=== PATIENT | female | born 1995 | race American Indian/Alaskan Native ===

== ENCOUNTER 2016-11-18 13:34 | Emergency (ER) | payer SELFPAY ==
--- NOTE | 2016-11-18 15:11 | Emergency Department Report ---
Entered by HOLLAND OZUNA, acting as scribe for ORI CAMPOS NP. Chief Complaint: Abdominal Pain Stated Complaint: ABDOMINAL PAIN/PREG Time Seen by Provider: 11/18/16 15:05 - HPI History of Present Illness: 21 y/o female presents with abd pain that started earlier today. Sx include mild vaginal d/c but pt denies dysuria, foul smelling urine or frequency. - ROS Review of Systems: + abd pain +vag d/c -dysuria -foul smelling urine - frequency - Exam Vital Signs: Vital Signs 11/18/16 15:00 Temperature 98.7 F Pulse Rate 97 H Respiratory 18 Rate Blood Pressure 148/57 O2 Sat by Pulse 100 Oximetry Physical Exam: abd: suprapubic TTP, no rebound no guarding. MSE screening note: Focused history and physical exam performed. Due to findings the following was ordered: labs, us ED Disposition for MSE Condition: Stable Instructions: Abdominal Pain (ED) This documentation as recorded by the scribe,HOLLAND OZUNA,accurately reflects the service I personally performed and the decisions made by ANDRES wise TRACY M , CRISSY.
[2016-11-18 15:24] LABS: Basophils % (Auto) 0.6 % (0.0-1.8); Hematocrit 34.1 % (30.3-42.9); Hemoglobin 11.5 gm/dl (10.1-14.3); Mean Corpuscular HGB Conc 34 % (30-34); Mean Corpuscular Volume 70 fl (79-97); Platelet Count 339 K/mm3 (140-440); Red Blood Count 4.86 M/mm3 (3.65-5.03); White Blood Count 14.6 K/mm3 (4.5-11.0)
[2016-11-18 15:43] LABS: Mean Corpuscular Hemoglobin 24 pg (28-32)
[2016-11-18 18:06] LABS: Alanine Aminotransferase 9 units/L (7-56); Albumin 3.8 g/dL (3.9-5); Alkaline Phosphatase 64 units/L (35-129); Anion Gap 19 mmol/L; Blood Urea Nitrogen 9 mg/dL (7-17); Calcium 9.1 mg/dL (8.4-10.2); Carbon Dioxide 21 mmol/L (22-30); Chloride 101.6 mmol/L (98-107); Glucose 131 mg/dL (65-100); Potassium 3.9 mmol/L (3.6-5.0); Sodium 138 mmol/L (137-145); Total Protein 7.7 g/dL (6.3-8.2)
--- NOTE | 2016-11-18 20:41 | Ultrasound Report ---
FINAL REPORT PROCEDURE: US OB TRANSVAGINAL TECHNIQUE: Real-time transabdominal and transvaginal sonography of the uterus, placenta, amniotic fluid, adnexa, and fetus was performed with image documentation. Measurements were obtained to determine age/size. M-mode Doppler was used to document heartbeat. CPT 08057 and 01489 HISTORY: pain, 10 weeks COMPARISON: No prior studies are available for comparison. FINDINGS: ADDITIONAL GESTATION: None. IUP is seen with pole measuring 2 cm. This corresponds to 8 weeks 4 days gestational age. However, no heart tones are identified and findings are worrisome for demise. Correlation with serial quantitative beta HCG levels is recommended. Right ovary is not visualized. Left ovary measures 3.2 x 2.1 x 2.6 cm. No free pelvic fluid is seen. IMPRESSION: Findings are worrisome for possible demise at 8 weeks 4 days gestational age. Correlation with serial quantitative beta HCG levels is recommended and repeat ultrasound may be useful if these continue to rise.
--- NOTE | 2016-11-18 20:42 | Ultrasound Report ---
FINAL REPORT PROCEDURE: US OB \T\lt; = 14 WEEKS FETUS TECHNIQUE: Real-time transabdominal and transvaginal sonography of the uterus, placenta, amniotic fluid, adnexa, and fetus was performed with image documentation. Measurements were obtained to determine age/size. M-mode Doppler was used to document heartbeat. CPT 47996 and 15175 HISTORY: pain, 10 weeks COMPARISON: No prior studies are available for comparison. FINDINGS: ADDITIONAL GESTATION: None. IUP is seen with pole measuring 2 cm. This corresponds to 8 weeks 4 days gestational age. However, no heart tones are identified and findings are worrisome for demise. Correlation with serial quantitative beta HCG levels is recommended. Right ovary is not visualized. Left ovary measures 3.2 x 2.1 x 2.6 cm. No free pelvic fluid is seen. IMPRESSION: Findings are worrisome for possible demise at 8 weeks 4 days gestational age. Correlation with serial quantitative beta HCG levels is recommended and repeat ultrasound may be useful if these continue to rise.
--- NOTE | 2016-11-19 01:03 | Emergency Department Report ---
ED Abdominal Pain HPI - General Chief Complaint: Abdominal Pain Stated Complaint: ABDOMINAL PAIN/PREG Time Seen by Provider: 11/18/16 15:05 Source: patient Mode of arrival: Ambulatory Limitations: No Limitations - History of Present Illness MD Complaint: abdominal pain -: week(s) (one week) Location: suprapubic Radiation: none Quality: cramping - Related Data LMP (females 10-50): (10 wks) Previous Rx's Medication Instructions Recorded Last Taken Type Amoxicillin/K Clav Tab [Augmentin 1 tab PO BID #20 tablet 04/20/14 Unknown Rx 875MG] Fluticasone [Flonase] 1 spray NS QDAY #1 bottle 04/20/14 Unknown Rx Ibuprofen [Motrin] 800 mg PO Q8H PRN #30 tablet 09/27/14 Unknown Rx Omeprazole [PriLOSEC] 20 mg PO BID #60 cap 09/27/14 Unknown Rx traMADol [Ultram] 50 mg PO Q6HR PRN #14 tablet 09/27/14 Unknown Rx Nitrofurantoin [place]/M-Cryst 100 mg PO Q12HR #14 capsule 11/19/16 Unknown Rx [Macrobid CAP] Ondansetron [Zofran Odt] 4 mg PO Q8HR PRN #14 tab.rapdis 11/19/16 Unknown Rx Allergies Allergy/AdvReac Type Severity Reaction Status Date / Time No Known Allergies Allergy Unverified 04/20/14 01:47 ED Review of Systems ROS: Stated complaint: ABDOMINAL PAIN/PREG Other details as noted in HPI Comment: All other systems reviewed and negative Constitutional: denies: chills, fever Respiratory: denies: cough, shortness of breath Cardiovascular: denies: chest pain Gastrointestinal: abdominal pain. denies: nausea, vomiting Neurological: denies: headache, weakness ED Past Medical Hx - Past Medical History Previous Medical History?: Yes Additional medical history: Vaginal dleivery 03-29-2016 - Surgical History Past Surgical History?: No - Social History Smoking Status: Current Every Day Smoker Substance Use Type: None - Medications Home Medications: Home Medications Medication Instructions Recorded Confirmed Last Taken Type Amoxicillin/K Clav Tab [Augmentin 1 tab PO BID #20 tablet 04/20/14 Unknown Rx 875MG] Fluticasone [Flonase] 1 spray NS QDAY #1 bottle 04/20/14 Unknown Rx Ibuprofen [Motrin] 800 mg PO Q8H PRN #30 tablet 09/27/14 Unknown Rx Omeprazole [PriLOSEC] 20 mg PO BID #60 cap 09/27/14 Unknown Rx traMADol [Ultram] 50 mg PO Q6HR PRN #14 tablet 09/27/14 Unknown Rx Nitrofurantoin [place]/M-Cryst 100 mg PO Q12HR #14 capsule 11/19/16 Unknown Rx [Macrobid CAP] Ondansetron [Zofran Odt] 4 mg PO Q8HR PRN #14 tab.rapdis 11/19/16 Unknown Rx ED Physical Exam - General Limitations: No Limitations General appearance: alert, in no apparent distress - Head Head exam: Present: atraumatic - Eye Eye exam: Present: normal appearance - Neck Neck exam: Present: normal inspection. Absent: tenderness, meningismus - Respiratory Respiratory exam: Present: normal lung sounds bilaterally. Absent: wheezes, rales - Cardiovascular Cardiovascular Exam: Present: regular rate, normal heart sounds - GI/Abdominal GI/Abdominal exam: Present: soft. Absent: distended, tenderness, guarding, rebound - Back Exam Back exam: Present: normal inspection. Absent: tenderness, CVA tenderness (R), CVA tenderness (L) - Neurological Exam Neurological exam: Present: alert, oriented X3, CN II-XII intact - Skin Skin exam: Present: warm, intact, normal color ED Course Vital Signs 11/18/16 15:00 Temperature 98.7 F Pulse Rate 97 H Respiratory 18 Rate Blood Pressure 148/57 O2 Sat by Pulse 100 Oximetry ED Medical Decision Making - Lab Data Result diagrams: 11/18/16 15:08 11/18/16 15:08 Critical care attestation.: If time is entered above; I have spent that time in minutes in the direct care of this critically ill patient, excluding procedure time. ED Disposition Clinical Impression: Abdominal pain affecting , before 20 weeks with retention of fetus Disposition: - TO HOME OR SELFCARE Is pt being admited?: No Does the pt Need Aspirin: No Condition: Stable Instructions: Abdominal Pain (ED) Prescriptions: Nitrofurantoin [place]/M-Cryst [Macrobid CAP] 100 mg PO Q12HR #14 capsule Ondansetron [Zofran Odt] 4 mg PO Q8HR PRN #14 tab.rapdis PRN Reason: Nausea And Vomiting Referrals: PRIMARY CARE,MD [Primary Care Provider] - 3-5 Days
[2016-11-19 01:37] LABS: Bilirubin,Urine NEG (Negative); Blood,Urine MOD (Negative); Ketones,Urine NEG (Negative); Leukocyte Esterase,Urine MOD (Negative); Mucus,Urine FEW /HPF; Nitrite,Urine NEG (Negative); Protein,Urine <15 mg/dL mg/dL (Negative); Urobilinogen,Urine < 2.0 mg/dL (<2.0)
[2016-11-19 03:00] VITALS: BP 145/88
== END 2016-11-19 02:45 | disposition home or self-care (01) ==
LOC: ED 13:34
DX: O26.891 Other specified pregnancy related conditions, first trimester (principal); O99.331 Smoking (tobacco) complicating pregnancy, first trimester; Z3A.10 10 weeks gestation of pregnancy; F17.200 Nicotine dependence, unspecified, uncomplicated
CPT/HCPCS: 36415; 76801; 76817; 80053; 81001; 84702; 85025; 86900; 86901

== ENCOUNTER 2016-11-21 03:41 | Emergency (ER) | payer SELFPAY ==
[2016-11-21 04:31] LABS: Basophils % (Auto) 0.6 % (0.0-1.8); Eosinophils % (Auto) 1.1 % (0.0-4.3); Hematocrit 32.2 % (30.3-42.9); Mean Corpuscular HGB Conc 34 % (30-34); Mean Corpuscular Hemoglobin 23 pg (28-32); Mean Corpuscular Volume 68 fl (79-97); Platelet Count 318 K/mm3 (140-440); Red Blood Count 4.73 M/mm3 (3.65-5.03); Red Cell Distribution Width 16.6 % (13.2-15.2)
[2016-11-21 05:01] LABS: Alanine Aminotransferase 11 units/L (7-56); Albumin 3.7 g/dL (3.9-5); Alkaline Phosphatase 61 units/L (35-129); Anion Gap 20 mmol/L; BUN/Creatinine Ratio 13.33; Blood Urea Nitrogen 8 mg/dL (7-17); Calcium 9.3 mg/dL (8.4-10.2); Carbon Dioxide 23 mmol/L (22-30); Chloride 99.2 mmol/L (98-107); Glucose 152 mg/dL (65-100); Lipase 13 units/L (13-60); Potassium 3.8 mmol/L (3.6-5.0); Sodium 138 mmol/L (137-145); Total Protein 7.5 g/dL (6.3-8.2)
[2016-11-21 05:17] LABS: Bilirubin,Urine NEG (Negative); Blood,Urine LG (Negative); Ketones,Urine NEG (Negative); Leukocyte Esterase,Urine NEG (Negative); Mucus,Urine FEW /HPF; Nitrite,Urine NEG (Negative); Protein,Urine <15 mg/dL mg/dL (Negative); Urobilinogen,Urine < 2.0 mg/dL (<2.0)
[2016-11-21 08:58] VITALS: BP 141/86
--- NOTE | 2016-11-21 10:53 | Ultrasound Report ---
ULTRASOUND OB LESS THAN 14 WEEKS FETUS ULTRASOUND OB TRANSVAGINAL HISTORY: Vaginal bleeding during . TECHNIQUE: Transabdominal and transvaginal ultrasound with color and spectral doppler interrogation. Compared to 11/18/16. Findings: The uterus measures 9 x 5 x 6 cm. The endometrial stripe appears thickened measuring up to 2.5 cm on transvaginal imaging. No intrauterine is demonstrated. No heart rate could be identified. The right ovary measures 2.5 x 1.5 x 2.6 cm. The left ovary measures 3.3 x 1.7 x 2.4 cm. No adnexal abnormality. No pelvic fluid collection. IMPRESSION: No intrauterine is appreciated on today's exam. The endometrial stripe appears thickened and heterogeneous measuring 2.5 cm. Spontaneous with retained products of conception is apparent since 11/18/16.
--- NOTE | 2016-11-21 11:15 | Emergency Department Report ---
HPI - General Chief Complaint: Vaginal Bleeding Time Seen by Provider: 11/21/16 10:01 - [facility] HPI: This is a 21-year-old Afro-[place] female presents to the emergency department for the second day in a row for evaluation of probable miscarriage. The patient came in yesterday at about 8 weeks because she was having some pelvic discomfort at that time as well as some vaginal bleeding. She had an ultrasound that showed concern for demise. She returned here today as she began having some increased bleeding this morning. However by this point the bleeding has almost resolved and the patient has no discomfort. With this she was . She does not have an SERVICE LEARNING COORDINATOR or primary care physician. She denies any past medical history. She has not taken anything for her symptoms prior to presentation. ED Past Medical Hx - Past Medical History Previous Medical History?: Yes Additional medical history: Vaginal dleivery 03-29-2016. obesity - Surgical History Past Surgical History?: No - Social History Smoking Status: Never Smoker Substance Use Type: None - Medications Home Medications: Home Medications Medication Instructions Recorded Confirmed Last Taken Type Amoxicillin/K Clav Tab [Augmentin 1 tab PO BID #20 tablet 04/20/14 Unknown Rx 875MG] Fluticasone [Flonase] 1 spray NS QDAY #1 bottle 04/20/14 Unknown Rx Ibuprofen [Motrin] 800 mg PO Q8H PRN #30 tablet 09/27/14 Unknown Rx Omeprazole [PriLOSEC] 20 mg PO BID #60 cap 09/27/14 Unknown Rx traMADol [Ultram] 50 mg PO Q6HR PRN #14 tablet 09/27/14 Unknown Rx Nitrofurantoin [place]/M-Cryst 100 mg PO Q12HR #14 capsule 11/19/16 Unknown Rx [Macrobid CAP] Ondansetron [Zofran Odt] 4 mg PO Q8HR PRN #14 tab.rapdis 11/19/16 Unknown Rx ED Review of Systems ROS: Stated complaint: POSS MISSCARRIAGE, HEAVY BLEEDING CLOTS Other details as noted in HPI Comment: All other systems reviewed and negative Constitutional: denies: chills, fever Eyes: denies: eye pain, eye discharge, vision change ENT: denies: ear pain, throat pain Respiratory: denies: cough, shortness of breath, wheezing Cardiovascular: denies: chest pain, palpitations Gastrointestinal: denies: nausea, vomiting Genitourinary: other (vaginal bleeding). denies: urgency, dysuria, discharge Musculoskeletal: denies: back pain, joint swelling, arthralgia Skin: denies: rash, lesions Neurological: denies: headache, weakness, paresthesias Physical Exam - Physical Exam Vital Signs: Vital Signs 11/21/16 11/21/16 11/21/16 03:45 08:56 08:58 Temperature 98.9 F 97.3 F L 98.0 F Pulse Rate 80 80 78 Respiratory 18 20 20 Rate Blood Pressure 141/86 Blood Pressure 138/71 141/86 [Right] O2 Sat by Pulse 98 97 97 Oximetry Physical Exam: GENERAL: The patient is well-developed well-nourished. HEENT: Normocephalic. Atraumatic. Extraocular motions are intact. Patient has moist mucous membranes. Pupils equal reactive to light bilaterally. NECK: Supple. Trachea is midline. CHEST/LUNGS: Clear to auscultation. There is no respiratory distress noted. HEART/CARDIOVASCULAR: Regular. There is no tachycardia. There is no gallop rub or murmur. ABDOMEN: Abdomen is soft, nontender. Patient has normal bowel sounds. There is no abdominal distention. Morbidly obese habitus. SKIN: Skin is warm and dry. NEURO: The patient is awake, alert, and oriented. The patient is cooperative. The patient has no focal neurologic deficits. The patient has normal speech. MUSCULOSKELETAL: There is no tenderness or deformity. There is no limitation range of motion. There is no evidence of acute injury. ED Course Vital Signs 11/21/16 11/21/16 11/21/16 03:45 08:56 08:58 Temperature 98.9 F 97.3 F L 98.0 F Pulse Rate 80 80 78 Respiratory 18 20 20 Rate Blood Pressure 141/86 Blood Pressure 138/71 141/86 [Right] O2 Sat by Pulse 98 97 97 Oximetry - Consultations Consultation #1: I spoke with the SERVICE LEARNING COORDINATOR agricultural education instructor, Dr. Amber Harris, who listened to the case presentation including labs and imaging results. She did not feel that Misoprostol should be given at this time but does want the patient to follow-up tomorrow with her in the office and will arrange the office staff to anticipate her call. 11/21/16 11:17 ED Medical Decision Making - Lab Data Result diagrams: 11/21/16 04:06 11/21/16 04:05 - Radiology Data Radiology results: report reviewed ULTRASOUND OB LESS THAN 14 WEEKS FETUS ULTRASOUND OB TRANSVAGINAL HISTORY: Vaginal bleeding during . TECHNIQUE: Transabdominal and transvaginal ultrasound with color and spectral doppler interrogation. Compared to 11/18/16. Findings: The uterus measures 9 x 5 x 6 cm. The endometrial stripe appears thickened measuring up to 2.5 cm on transvaginal imaging. No intrauterine is demonstrated. No heart rate could be identified. The right ovary measures 2.5 x 1.5 x 2.6 cm. The left ovary measures 3.3 x 1.7 x 2.4 cm. No adnexal abnormality. No pelvic fluid collection. IMPRESSION: No intrauterine is appreciated on today's exam. The endometrial stripe appears thickened and heterogeneous measuring 2.5 cm. Spontaneous with retained products of conception is apparent since 11/18/16. - Medical Decision Making 21-year-old female presents with previous ultrasound showing demise and current ultrasound showing spontaneous miscarriage with retained products of conception. Labs are unremarkable other than decrease in beta hCG. Vital signs stable. Spoke to SERVICE LEARNING COORDINATOR who would like follow-up tomorrow in the office. - Differential Diagnosis threatened miscarriage, spontaneous miscarriage, fibroids Critical Care Time: No Critical care attestation.: If time is entered above; I have spent that time in minutes in the direct care of this critically ill patient, excluding procedure time. ED Disposition Clinical Impression: Spontaneous miscarriage, Retained products of conception Disposition: DC-01 TO HOME OR SELFCARE Is pt being admited?: No Condition: Stable Instructions: Spontaneous Miscarriage (ED) Additional Instructions: Please call the SERVICE LEARNING COORDINATOR office today for an appointment for tomorrow. Return to the emergency department with any acute distress. Referrals: AMBER HARRIS MD [Staff Physician] - 11/22/16 Time of Disposition: 11:19
== END 2016-11-21 11:30 | disposition home or self-care (01) ==
LOC: ED 03:41
DX: O03.4 Incomplete spontaneous abortion without complication (principal); Z3A.08 8 weeks gestation of pregnancy
CPT/HCPCS: 36415; 76801; 76817; 80053; 81001; 83690; 84702; 85025; 86850; 86900; 86901; 99284